=== PATIENT | female | born 1965 | race Hispanic/Latino ===

== ENCOUNTER 2020-10-29 14:39 | Inpatient (IN) | payer BC ==
[~2020-10-29] VITALS: Ht 172.7 cm; Wt 92.0 kg
[~2020-10-29 14:39] MED LIST: BENICAR40 MG PO; KONDREMUL2.5 ML/5 M PO; MOTRIN IB200 M1 PO; NORCO 5-325 TA1 EACH PO; NORVASC5 MG PO; SENOKOT8.6 MG PO; ZOFRAN8 MG PO
[2020-10-30] MEDS ORDERED: ONDANSETRON ODT4 MG PO (09:47)
[2020-10-30] MEDS ORDERED: OMEPRAZOLE20 MG PO (09:49)
[2020-10-30] MEDS ORDERED: CITALOPRAM HBR20 MG PO (09:49)
--- NOTE | 2020-10-30 13:52 | EKG ---
[facility] [address] [place], [place] [address] Signed Normal sinus rhythm Normal ECG Confirmed by LAKIA OSORIO MD ([id number]) on 10/30/2020 1:52:20 PM Electronically Signed By: LAKIA OSORIO MD 10/30/20 1352 PATIENT NAME: XIMENA CORONAROSELYN Electrocardiogram DATE OF : 65 PHYSICIAN: LAKIA OSORIO MD REPORT #: [id number] REPORT IS CONFIDENTIAL AND NOT TO BE RELEASED WITHOUT AUTHORIZATION
[2020-11-05] MEDS ORDERED: BENZONATATE100 MG PO (13:52)
[2020-11-05] MEDS ORDERED: DEXAMETHASONE4 MG PO (13:53)
[2020-11-06] MEDS ORDERED: SUDOGEST30 MG PO (17:13)
== END 2020-11-05 15:05 | disposition home or self-care (01) | DRG 177 ==
LOC: ED 14:39 → CCU 18:09 → MS 11-02 20:22
PROVIDERS: ADMIT Internal Medicine; ATTEND Internal Medicine
PROC: XW033E5 Introduction of Remdesivir Anti-infective into Peripheral Vein, Percutaneous Approach, New Technology Group 5 (ICD-10-PCS; principal; 2020-10-30)
DX: U07.1 COVID-19 (principal); J12.89 Other viral pneumonia; J96.01 Acute respiratory failure with hypoxia; E87.1 Hypo-osmolality and hyponatremia; K75.2 Nonspecific reactive hepatitis; I10 Essential (primary) hypertension; Z79.899 Other long term (current) drug therapy
CPT/HCPCS: 71045; 80053; 81001; 83605; 83690; 83880; 85025; 87040; 87502; 93005; 93010; 94667; 94760; 94799; 96374; 96375; 99285-25; C9803; J0456; J1650; J1885; J3370; J7030; J7050; J7060; J8540; U0003

== ENCOUNTER 2020-11-06 15:58 | Emergency (ER) | payer BC ==
[~2020-11-06] VITALS: Ht 172.7 cm; Wt 91.6 kg
[~2020-11-06 15:58] MED LIST changes: +BENZONATATE100 MG PO; +CITALOPRAM HBR20 MG PO; +DEXAMETHASONE4 MG PO; +OMEPRAZOLE20 MG PO; +ONDANSETRON ODT4 MG PO
--- OUTSIDE RECORDS SUMMARY | 2020-11-06 16:00 | XMS ---
PreManage Notification: ROSELYN BAPTISTE [employer] Events No recent Security Events currently on file CRITERIA MET - [facility] - 2 Visits in 30 Days CARE PROVIDERS There are no care providers on record at this time. Amanda has no Care Guidelines for this patient. Joao V[facility] COUNT (12 MO.) 2 [facility] 2 NOTE: Visits indicate total known visits[facility] [place] [place] [facility] COMPLAINT: - SHORTNESS OF BREATH 10/29/2020 14:41 [facility] OR TYPE: Emergency COMPLAINT: - ABD PAIN,COUGH INPATIENT VISIT TRACKING (12 MO.) 10/29/2020 18:09 [facility] OR TYPE: Medical Surgical COMPLAINT: - SARS-COV-2 PNA [email or web address]
[2020-11-06] MEDS ORDERED: SUDOGEST30 MG PO (17:13)
== END 2020-11-06 18:24 | disposition home or self-care (01) ==
LOC: ED 15:58
DX: R21 Rash and other nonspecific skin eruption (principal); K14.8 Other diseases of tongue; T48.3X5A Adverse effect of antitussives, initial encounter; U07.1 COVID-19; I10 Essential (primary) hypertension; Z79.899 Other long term (current) drug therapy
CPT/HCPCS: 99283; J1100; Q0163

== ENCOUNTER 2022-12-20 12:41 | Emergency (ER) | payer BC ==
[~2022-12-20] VITALS: Ht 170.2 cm; Wt 104.3 kg
[~2022-12-20 12:41] MED LIST changes: +SUDOGEST30 MG PO
[2022-12-20] MEDS ORDERED: METOPROLOL SUCC25 MG PO (15:35)
[2022-12-20] MEDS ORDERED: CHLORTHALIDONE25 MG PO (15:36)
[2022-12-20] MEDS ORDERED: K-TAB ER20 MEQ PO (18:34)
[2022-12-20] MEDS ORDERED: LOMOTIL TABLET1 EACH PO (18:34)
[2022-12-20] MEDS ORDERED: ONDANSETRON ODT8 MG PO (18:34)
== END 2022-12-20 18:55 | disposition home or self-care (01) ==
LOC: ED 12:41
DX: K52.9 Noninfective gastroenteritis and colitis, unspecified (principal); I10 Essential (primary) hypertension; Z79.899 Other long term (current) drug therapy; Z20.822 Contact with and (suspected) exposure to COVID-19
CPT/HCPCS: 36415; 80053; 81001; 83735; 85025; 87502; 96361; 96365; 96366; 96368; 96375; 99284-25; A9270; C9803; J2405; J3475; J3480; J7121; U0003